=== PATIENT | female | born 1985 | race Caucasian/White ===

== ENCOUNTER 2019-04-22 21:40 | Emergency (ER) | payer OTHER ==
[2019-04-22 21:55] VITALS: BP 133/88
[2019-04-22] MEDS ORDERED: LIDOCAINE JELLY 2% 5 ML TUBE TOP STA (22:57)
--- NOTE | 2019-04-22 23:32 | ED Physician Documentation ---
PD HPI HEENT - Stated complaint Stated Complaint: FACE SWELLING/TOOTH PX - Chief complaint Chief Complaint: Heent - History obtained from History obtained from: Patient - History of Present Illness Timing - onset: How many days ago (3) Timing - duration: Days (3) Timing - details: Gradual onset, Still present Location: Tooth Improves: Medication Associated symptoms: Fever, Facial swelling Similar symptoms before: Diagnosis (dental abscess) Recently seen: Not recently seen - Additional information Additional information: Previously well 33-year-old female has developed some pain in a right lower tooth and she is now developed swelling of her face this morning. She was going to wait to see the dentist until Wednesday and she is decided to come in today because of the significant swelling that developed this morning. She has significant pain associated with this as well. She has not had drainage from the area. Review of Systems Constitutional: reports: Fever Eyes: denies: Decreased vision Ears: denies: Ear pain Nose: denies: Congestion Throat: reports: Dental pain / toothache Respiratory: denies: Dyspnea, Cough PD PAST MEDICAL HISTORY - Past Medical History Past Medical History: No - Past Surgical History Past Surgical History: Yes General: Appendectomy HEENT: Other - Present Medications Home Medications: Ambulatory Orders Medication Instructions Recorded Confirmed Amox/Clav 875/125 [Augmentin] 1 each PO Q12H #14 tablet 04/22/19 Hydrocodone/Acetaminophen 1 - 2 each PO Q6H PRN #14 tablet 04/22/19 [Hydrocodon-Acetaminophen 5-325] - Allergies Allergies/Adverse Reactions: Allergies Allergy/AdvReac Type Severity Reaction Status Date / Time No Known Drug Allergies Allergy Verified 04/22/19 21:47 - Social History Does the pt smoke?: No Smoking Status: Never smoker Does the pt drink ETOH?: No Does the pt have substance abuse?: No - Immunizations Immunizations are current?: Yes PD ED PE NORMAL - Vitals Vital signs reviewed: Yes - General General: Alert and oriented X 3, Well developed/nourished, Other (There is obvious swelling to the right face and the patient appears to be in pain. ) - HEENT HEENT: Atraumatic, PERRL, EOMI, Other (There is swelling and fluctuance to the right lower buccal fold. There are missing and crooked teeth. There is swelling to the lower jaw on the right side. 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, No motor deficit, No sensory deficit, Normal speech Eye Opening: Spontaneous Motor: Obeys Commands Verbal: Oriented GCS Score: 15 - Psych Psych: Normal mood, Other (affect is flat and painful ) Results - Vitals Vitals: Vital Signs - 24 hr 04/22/19 21:46 Temperature 36.4 C L Heart Rate 113 H Respiratory 18 Rate Blood Pressure 133/88 H O2 Saturation 98 Procedures - Abscess I&D (location) right lower jaw Preparation: Lidocaine 2 % (jelly) Incision: Needle aspiration, Purulent drainage, Culture obtained Other: Pt tolerated well, Antibiotic prescribed PD MEDICAL DECISION MAKING - ED course Complexity details: considered differential, d/w patient ED course: 31-year-old female with a dental abscess and fluctuance to the buccal fold is administered 2% lidocaine jelly on cotton roll and needle aspiration is done obtaining several cc of purulent foul-smelling drainage. The patient is encouraged to massage the area and get whatever fluid else she can out of there. We will place her on some Augmentin and pain medication. Departure - Departure Disposition: 01 Home, Self Care Clinical Impression: Dental abscess Condition: Stable Instructions: ED Abscess Dental Follow-Up: CAROL Villalobos [Provider Group] Prescriptions: Amox/Clav 875/125 [Augmentin] 1 each PO Q12H #14 tablet Hydrocodone/Acetaminophen [Hydrocodon-Acetaminophen 5-325] 1 - 2 each PO Q6H PRN #14 tablet PRN Reason: pain
[2019-04-22] MEDS ORDERED: AMOX/CLAV 875 MG/125 MG TABLET PO STA (23:36)
[2019-04-22] MEDS ORDERED: HYDROcod/ACET 5/325 Prepack 4 PO STA (23:36)
== END 2019-04-22 23:44 | disposition home or self-care (01) ==
LOC: ED 21:40
DX: K04.7 Periapical abscess without sinus (principal)
CPT/HCPCS: 41800; 87070; 87205; 99283; 99284; A9270; J3490